=== PATIENT | male | born 1965 | race Caucasian/White ===

== ENCOUNTER → 2017-09-06 | Outpatient (CLI) | payer OTHER | LOC: CAT 07:45 | DX: Z13.6 Encounter for screening for cardiovascular disorders (principal) ==

== ENCOUNTER → 2017-10-12 | Outpatient (CLI) | payer OTHER ==
--- NOTE | ~2017-10-12 | EXE ---
[facility] [place] [address] STRESS ECHOCARDIOGRAM Name: FRANCO MELCHOR Room #: REG Roberta#: [id number] Admission: 10/12/17 Attend Phys: Marko Byrd, Discharge: Date of : 69 Date of Service: 10/12/17 1155 Report #: [id number] THIS REPORT FOR: //name// APPROVED REPORT Exam: Stress Echocardiogram Indication: Screening for CAD Patient Location: Echo lab Stress Nurse: Radha Godinez RN Status: routine Ht: 6 ft 4 in HR: 81 bpm BP: 135/95 mmHg Medical History Medical History: HTN, Tobacco history (Former) Cardiac Risk Factors: HTN, Hyperlipidemia, FHX of CAD, Tobacco History (Former) Procedure The patient underwent an Exercise Stress Test using the Angel Protocol. Blood pressure, heart rate, and EKG were monitored. An Echocardiogram was performed by fire alarm technician in four stages in quad fashion. At peak stress, four selected images were obtained and placed side by side with resting images for comparison. Stress Test Details Stress Test: Exercise stress testing was performed using a Angel protocol. HR Resting HR: 83 bpm Max Heart Rate (APMHR): 171 bpm Max HR Achieved: 162 bpm Target HR (85% APMHR): 145 bpm % of APMHR: 94 Recovery HR: 72 bpm BP Resting BP: 135/95 mmHg Max BP: 200/82 mmHg Recovery BP: 152/76 mmHg ECG Clinical Reason for Termination: Maximal effort Stress Symptoms: Fatigue [facility] [address] [place] [address] STRESS ECHOCARDIOGRAM Name: FRANCO MELCHOR Room #: REG CL [facility]#: [id number] Admission: 10/12/17 Attend Phys: Marko Byrd, Discharge: Date of : 69 Date of Service: 10/12/17 1155 Report #: [id number] Exercise duration: 10 min 43 sec Highest Stage Achieved: Stage 4: 4.2 mph at 16% grade. Exercise capacity: 13.7 METs Pre-Stress Echo The resting Echocardiogram showed normal left ventricular contractility with an estimated Ejection Fraction of about 50-55%. Post-Stress Echo The stress Echocardiogram showed normal left ventricular contractility with an estimated Ejection Fraction of about 60-65%. Conclusion Clinical Response: Non-ischemic Exercise Capacity: Superior Stress ECG Response: Non-ischemic Stress Echo Images: Non-ischemic Other Information Study Quality: Adequate <ELECTRONICALLY SIGNED> By: Marko Byrd MD, FACC 10/12/17 1155 54 54 Marko Byrd MD, FACC /INF
== END ==
LOC: CV 08:46
DX: I25.10 Atherosclerotic heart disease of native coronary artery without angina pectoris (principal)

== ENCOUNTER → 2020-04-09 | Outpatient (CLI) | payer OTHER | LOC: SJCVCIMAG 08:59 | DX: I07.1 Rheumatic tricuspid insufficiency (principal); E78.00 Pure hypercholesterolemia, unspecified; I10 Essential (primary) hypertension ==

== ENCOUNTER → 2021-05-07 | Outpatient (CLI) | payer OTHER | LOC: CAT 14:49 | PROVIDERS: ATTEND Internal Medicine Cardiovascular Disease | DX: Z13.6 Encounter for screening for cardiovascular disorders (principal) ==